=== PATIENT | male | born 2000 | race Caucasian/White ===

== ENCOUNTER 2023-07-22 22:20 | Emergency (ER) | payer OTHER ==
[~2023-07-22] VITALS: Ht 175.3 cm; Wt 70.8 kg
[2023-07-22 22:30] VITALS: BP_SYST 125; PULSE 88; RESP 17; TEMP 98.7; O2SAT 97
[2023-07-23 06:34] VITALS: BP_SYST 138; PULSE 75; RESP 16; TEMP 97.8; O2SAT 96
[2023-07-23] MEDS ORDERED: ZIT250 PO (06:40)
[2023-07-23] MEDS ORDERED: NAPR-688 PO (06:43)
== END 2023-07-23 06:51 | disposition home or self-care (01) ==
LOC: SED 22:20
DX: J06.9 Acute upper respiratory infection, unspecified (principal); J98.2 Interstitial emphysema; R05.9 Cough, unspecified; R07.9 Chest pain, unspecified; Z79.899 Other long term (current) drug therapy
CPT/HCPCS: 71250-TC; 76376; 99284